=== PATIENT | male | born 1955 | race Hispanic/Latino ===

== ENCOUNTER → 2019-04-30 | Outpatient (CLI) | payer MEDICARE ==
[~2019-04-30] MED LIST: AEC81 PO; CLOP75TA14 PO; GEMF600T5 PO; LEVO50TA11 PO; LISI-613 PO; METF-444 PO; METO25 PO; RANO500T2 PO; ROSU5TAB12 PO
== END | disposition home or self-care (01) ==
LOC: SHCH 09:52
PROVIDERS: ATTEND Internal Medicine Cardiovascular Disease
DX: I87.2 Venous insufficiency (chronic) (peripheral) (principal)
CPT/HCPCS: 93970